=== PATIENT | male | born 1950 | race Caucasian/White ===

== ENCOUNTER 2017-09-18 07:00 | Day surgery (SDC) | payer OTHER ==
[~2017-09-18] VITALS: Ht 182.9 cm; Wt 75.7 kg
[~2017-09-18 07:00] MED LIST: ALBUTEROL0.63 MG/3 IH; ASPIR 8181 MG PO; ASTEPRO205.5 MCG/; DUONEB IH; FINASTERIDE1 MG PO; FLONASE ALLERG9.9 ML; JANUMET 50-5001 EACH PO; OMEPRAZOLE40 MG PO; PREDNISONE5 M1 PO; PROLASTIN C1000 MG IV; RANITIDINE HCL150 M1 PO; SYMAX0.125 MG PO; TAMS0.4C PO
== END 2017-09-19 08:00 | disposition home or self-care (01) ==
LOC: SURH 07:00 → CIR.AMB 07:00 → EDSTATUS 07:00 → SURH 09:05 → O/R 09:05 → SURH 14:07 → O/R 15:00 → SURG 15:00 → SURH 17:26 → CIR.AMB 09-19 08:00 → SURG 09-19 08:13
DX: C61 Malignant neoplasm of prostate (principal); N40.1 Benign prostatic hyperplasia with lower urinary tract symptoms; R33.8 Other retention of urine; E11.9 Type 2 diabetes mellitus without complications; N31.8 Other neuromuscular dysfunction of bladder